=== PATIENT | female | born 1940 | race Caucasian/White ===

== ENCOUNTER 2017-03-30 22:30 | Emergency (ER) | payer OTHER ==
[~2017-03-30] VITALS: Ht 160 cm; Wt 52.6 kg
[~2017-03-30 22:30] MED LIST: ATOR20TA PO; [UNRECOGNIZED DRUG - REMARK]
[2017-03-30] MEDS ORDERED: SODIUM BICARBONATE 4.2 % (NEUT) 5 ML VIAL TP ONE (23:30)
[2017-03-30] MEDS ORDERED: NEOMY/BACITRA/POLYMYXIN B OINT UD PACKET TP ONE (23:30)
[2017-03-30] MEDS ORDERED: LET TOPICAL SOLUTION 8 ML UDC TOP ONE (23:30)
[2017-03-30] MEDS ORDERED: LIDOCAINE HCL 2% 20 ML VIAL TP ONE (23:30)
--- NOTE | 2017-03-31 00:23 | NUR ---
PT IN BED. PT IS A&OX4. VSS. BREATH SOUNDS REGULAR AND UNLABORED. PT GETTING HAND WOUND DRESSED.
[2017-03-31] MEDS ORDERED: SODIUM BICARBONATE 4.2 % (NEUT) 5 ML VIAL ONE (00:50)
[2017-03-31] MEDS ORDERED: NEOMY/BACITRA/POLYMYXIN B OINT UD PACKET TP ONE ×2 (00:50→02:20)
[2017-03-31] MEDS ORDERED: LIDOCAINE HCL 2% 20 ML VIAL ONE (00:50)
[2017-03-31] MEDS ORDERED: LET TOPICAL SOLUTION 8 ML UDC ONE (00:50)
--- NOTE | 2017-03-31 02:00 | NUR ---
MD RANDOLPH AT BEDSIDE PERFORMING LAC REPAIR.
--- NOTE | 2017-03-31 03:30 | NUR ---
Patient discharged to home in stable conditon. Written and verbal after care instructions given. Patient verbalizes understanding of instructions.
[2017-03-31 04:04] VITALS: BP 143/78
== END 2017-03-31 03:30 | disposition home or self-care (01) ==
LOC: ER 22:31
DX: S81.012A Laceration without foreign body, left knee, initial encounter (principal); S61.411A Laceration without foreign body of right hand, initial encounter; J18.9 Pneumonia, unspecified organism; E03.9 Hypothyroidism, unspecified; W01.0XXA Fall on same level from slipping, tripping and stumbling without subsequent striking against object, initial encounter; Y92.89 Other specified places as the place of occurrence of the external cause; Y93.89 Activity, other specified; Y99.8 Other external cause status
CPT/HCPCS: 73130; 73700; A4217; A4663; J3490

== ENCOUNTER 2022-10-15 11:14 | Emergency (ER) | payer OTHER ==
[~2022-10-15] VITALS: Ht 160 cm; Wt 59.0 kg
[2022-10-15] MEDS: IPRATROPIUM BROMIDE 0.5 MG/2.5 ML NEBU NEB ONE (11:45)
[2022-10-15] MEDS: ALBUTEROL SULFATE 2.5 MG/3 ML NEBU NEB ONE (11:45)
[2022-10-15] MEDS ORDERED: IPRATROPIUM BROMIDE 0.5 MG/2.5 ML NEBU ONE (11:47)
[2022-10-15] MEDS ORDERED: ALBUTEROL SULFATE 2.5 MG/3 ML NEBU ONE (11:47)
[2022-10-15] MEDS ORDERED: methylPREDNISolone SOD SUCC 125 MG/2 ML VIAL ONE (11:49)
[2022-10-15 11:50] VITALS: O2SAT 97
[2022-10-15] MEDS: methylPREDNISolone SOD SUCC 125 MG/2 ML VIAL IV ONE (11:54)
[2022-10-15 12:08] LABS: MEAN CORPUSCULAR HGB CONC 34 g/dL (32.3-35.6)
[2022-10-15 12:22] LABS: BASOPHILS # (AUTO) 0.1 K/UL (0.0-0.2); BASOPHILS % (AUTO) 1.5 % (0.0-2.0); DIFFERENTIAL COMMENT 0; EOSINOPHILS % (AUTO) 0.3 % (0.0-7.0); HEMATOCRIT 39.2 % (31.2-41.9); HEMOGLOBIN 13.3 g/dL (10.9-14.3); LYMPHOCYTES # (AUTO) 0.6 K/uL (0.8-4.8); LYMPHOCYTES % (AUTO) 7.1 % (20.5-51.5); MEAN CORPUSCULAR HEMOGLOBIN 32.4 uug (24.7-32.8); MEAN CORPUSCULAR VOLUME 95.4 fL (75.5-95.3); MONOCYTES # (AUTO) 0.9 K/uL (0.1-1.30); MONOCYTES % (AUTO) 10.3 % (0.0-11.0); NEUTROPHILS # (AUTO) 7.2 K/uL (1.8-8.9); NEUTROPHILS % (AUTO) 80.8 % (38.5-71.5); PLATELET COUNT (AUTO) 286 K/uL (179-408); RED BLOOD CELL COUNT(AUTO) 4.11 MIL/uL (3.63-4.92); RED CELL DISTRIBUTION WIDTH 12.3 % (12.3-17.7); WHITE BLOOD COUNT (AUTO) 8.9 K/uL (3.8-11.8)
[2022-10-15 12:26] LABS: CALCIUM 9.1 mg/dL (8.5-10.1); CARBON DIOXIDE 33 mmol/L (21-32); CHLORIDE 102 mmol/L (98-107); CREATININE 0.8 mg/dL (0.6-1.3); GLUCOSE 114 mg/dL (74-106); POTASSIUM 3.6 mmol/L (3.5-5.1); SODIUM SERUM 143 mmol/L (136-145); UREA NITROGEN, BLOOD 12 mg/dL (7-18)
[2022-10-15 12:36] LABS: LACTIC ACID 2.7 mmol/L (0.4-2.0)
[2022-10-15 12:38] LABS: ALANINE AMINOTRANSFERASE 35 U/L (14-59); ALBUMIN 3.5 g/dL (3.4-5.0); ALKALINE PHOSPHATASE 138 U/L (50-136); ASPARTATE AMINOTRANSFERASE 32 U/L (15-37); BILIRUBIN,DIRECT 0.3 mg/dL (0.0-0.2); BILIRUBIN,TOTAL 0.6 mg/dL (0.2-1.0); NT-PRO BNP 207 pg/mL (0-125); TOTAL PROTEIN, SERUM 7.7 g/dL (6.4-8.2)
[2022-10-15] MEDS ORDERED: CEFTRIAXONE /D5W 50ML IVPB **ER PYXIS IV ONE (13:03)
[2022-10-15] MEDS: CEFTRIAXONE 1 G in IV DEXTROSE 5% 50 ML IV ONE (13:04)
[2022-10-15] MEDS: IV NORMAL SALINE 1000 ML BAG IV ONE (13:04)
[2022-10-15] MEDS ORDERED: AZITHROMYCIN 500MG/ D5W 250ML IVPB **ER PYXIS ONLY IV ONE (13:04)
[2022-10-15 13:25] VITALS: O2SAT 99
[2022-10-15] MEDS: AZITHROMYCIN IV 500 MG in IV DEXTROSE 5% 250 ML IV ONE (14:02)
[2022-10-15 17:00] VITALS: O2SAT 95
== END 2022-10-15 17:25 | disposition short-term general hospital (02) ==
LOC: ER 11:19
DX: A41.9 Sepsis, unspecified organism (principal); J18.9 Pneumonia, unspecified organism; J44.9 Chronic obstructive pulmonary disease, unspecified; I25.10 Atherosclerotic heart disease of native coronary artery without angina pectoris; I10 Essential (primary) hypertension; E03.9 Hypothyroidism, unspecified; Z86.2 Personal history of diseases of the blood and blood-forming organs and certain disorders involving the immune mechanism; Z88.2 Allergy status to sulfonamides; Z91.040 Latex allergy status; Z79.899 Other long term (current) drug therapy; Z20.822 Contact with and (suspected) exposure to COVID-19
CPT/HCPCS: 99291; 93970; 96365; 96366; 96367; 96375; 87426; 80076; 80048; 83880; 85025; 85379; 87040 ×2; 84484; 36415; 93005 ×2; 71045; 94644; 83605 ×2; J0456; J0696; J2930; J7040; A4663; J3590

== ENCOUNTER 2024-02-13 14:40 | Emergency (ER) | payer OTHER ==
[~2024-02-13] VITALS: Ht 157.5 cm; Wt 56.7 kg
[2024-02-13 14:47] VITALS: O2SAT 97
[2024-02-13] MEDS: ALBUTEROL SULFATE 2.5 MG/3 ML NEBU NEB ONE ×3 (14:47→20:11)
[2024-02-13] MEDS: IPRATROPIUM BROMIDE 0.5 MG/2.5 ML NEBU NEB ONE (14:47)
[2024-02-13] MEDS ORDERED: IPRATROPIUM BROMIDE 0.5 MG/2.5 ML NEBU ONE (15:02)
[2024-02-13] MEDS ORDERED: ALBUTEROL SULFATE 2.5 MG/3 ML NEBU ONE ×2 (15:02→20:04)
[2024-02-13] MEDS ORDERED: methylPREDNISolone SOD SUCC 125 MG/2 ML VIAL ONE (15:04)
[2024-02-13 15:13] LABS: BASOPHILS # (AUTO) 0.1 K/UL (0.0-0.2); BASOPHILS % (AUTO) 0.7 % (0.0-2.0); HEMATOCRIT 41.5 % (31.2-41.9); HEMOGLOBIN 14.1 g/dL (10.9-14.3); LYMPHOCYTES # (AUTO) 0.8 K/uL (0.8-4.8); LYMPHOCYTES % (AUTO) 10.6 % (20.5-51.5); MEAN CORPUSCULAR HEMOGLOBIN 31.5 uug (24.7-32.8); MEAN CORPUSCULAR HGB CONC 34 g/dL (32.3-35.6); MEAN CORPUSCULAR VOLUME 93.1 fL (75.5-95.3); MONOCYTES # (AUTO) 0.8 K/uL (0.1-1.30); MONOCYTES % (AUTO) 10.5 % (0.0-11.0); NEUTROPHILS # (AUTO) 5.9 K/uL (1.8-8.9); NEUTROPHILS % (AUTO) 78.2 % (38.5-71.5); PLATELET COUNT (AUTO) 218 K/uL (179-408); RED BLOOD CELL COUNT(AUTO) 4.46 MIL/uL (3.63-4.92); RED CELL DISTRIBUTION WIDTH 13.2 % (12.3-17.7); WHITE BLOOD COUNT (AUTO) 7.5 K/uL (3.8-11.8)
[2024-02-13] MEDS: IV NORMAL SALINE 1000 ML BAG IV ONE (15:14)
[2024-02-13] MEDS: methylPREDNISolone SOD SUCC 125 MG/2 ML VIAL IV ONE (15:14)
[2024-02-13] MEDS ORDERED: ATOR20TA27 PO (15:16)
[2024-02-13] MEDS ORDERED: CICL6.1H2 PO (15:16)
[2024-02-13] MEDS ORDERED: LIDO113S2 TOP (15:16)
[2024-02-13 15:17] LABS: DIFFERENTIAL COMMENT 1
[2024-02-13] MEDS ORDERED: BIOT25008 PO (15:18)
[2024-02-13] MEDS ORDERED: CALC-953 PO (15:18)
[2024-02-13] MEDS ORDERED: CYCL1DRO6 TOP (15:18)
[2024-02-13] MEDS ORDERED: FERR325C PO (15:20)
[2024-02-13] MEDS ORDERED: DULO30CA52 PO (15:20)
[2024-02-13] MEDS ORDERED: CITA10TA9 PO (15:20)
[2024-02-13 15:24] LABS: CALCIUM 9.4 mg/dL (8.5-10.1); CARBON DIOXIDE 33 mmol/L (21-32); CHLORIDE 101 mmol/L (98-107); CREATININE 0.5 mg/dL (0.6-1.3); GLUCOSE 111 mg/dL (74-106); POTASSIUM 3.6 mmol/L (3.5-5.1); SODIUM SERUM 142 mmol/L (136-145); UREA NITROGEN, BLOOD 16 mg/dL (7-18)
[2024-02-13] MEDS ORDERED: ALPRAZOLAM 0.5 MG TABLET ONE (15:31)
[2024-02-13] MEDS: ALPRAZOLAM 0.25 MG TABLET PO ONE (15:32)
[2024-02-13 15:38] LABS: ALANINE AMINOTRANSFERASE 26 U/L (14-59); ALKALINE PHOSPHATASE 99 U/L (50-136); ASPARTATE AMINOTRANSFERASE 49 U/L (15-37); BILIRUBIN,DIRECT 0.3 mg/dL (0.0-0.2); BILIRUBIN,TOTAL 0.6 mg/dL (0.2-1.0); NT-PRO BNP 662 pg/mL (0-125); TOTAL PROTEIN, SERUM 7.6 g/dL (6.4-8.2)
[2024-02-13] MEDS: MAGNESIUM SULFATE 2 GM in IV DEXTROSE 5% 100 ML IV ONE (15:44)
[2024-02-13 15:50] VITALS: O2SAT 97; O2SAT 99
[2024-02-13] MEDS ORDERED: GABA-534 PO (15:52)
[2024-02-13] MEDS ORDERED: MULT1TAB11 PO (15:52)
[2024-02-13] MEDS ORDERED: LEVO100C4 PO (15:52)
[2024-02-13] MEDS ORDERED: PRAM0.253 PO (15:54)
[2024-02-13] MEDS ORDERED: OMEP20CA15 PO (15:54)
[2024-02-13] MEDS ORDERED: TIOT4MIS3 PO (15:54)
[2024-02-13] MEDS ORDERED: TACR30OI5 TOP (15:56)
[2024-02-13] MEDS ORDERED: ERGO500014 PO (15:56)
[2024-02-13] MEDS ORDERED: THEO400T PO (15:56)
[2024-02-13] MEDS ORDERED: ACET500C4 PO (15:59)
[2024-02-13] MEDS ORDERED: ALBU8.5H8 PO (15:59)
[2024-02-13] MEDS ORDERED: ALPR0.5T8 PO (15:59)
[2024-02-13] MEDS ORDERED: DOCU100T2 PO (16:01)
[2024-02-13] MEDS ORDERED: FURO20TA4 PO (16:01)
[2024-02-13] MEDS ORDERED: HYDR-4384 PO (16:01)
[2024-02-13] MEDS ORDERED: NALO4SPR NAS (16:04)
[2024-02-13] MEDS ORDERED: IPRA3AMP23 NEB (16:04)
[2024-02-13] MEDS ORDERED: GUAI600T53 PO (16:04)
[2024-02-13] MEDS ORDERED: CEFTRIAXONE /D5W 50ML IVPB **ER PYXIS IV ONE (16:13)
[2024-02-13] MEDS: CEFTRIAXONE 1 G in IV DEXTROSE 5% 50 ML IV ONE (16:27)
[2024-02-13] MEDS ORDERED: POTASSIUM BICARBONATE/CIT AC 25 MEQ TABLET.EFF ONE (17:35)
[2024-02-13] MEDS: POTASSIUM BICARBONATE/CIT AC 25 MEQ TABLET.EFF PO ONE (17:36)
[2024-02-13 20:05] VITALS: O2SAT 96
[2024-02-13 20:20] VITALS: O2SAT 99
[2024-02-13 21:49] VITALS: BP 123/70; TEMP 98.2; O2SAT 96
== END 2024-02-13 21:50 ==
LOC: ER 14:40
DX: J44.1 Chronic obstructive pulmonary disease with (acute) exacerbation (principal); R06.03 Acute respiratory distress; E03.9 Hypothyroidism, unspecified; F32.A Depression, unspecified; F41.9 Anxiety disorder, unspecified; I25.10 Atherosclerotic heart disease of native coronary artery without angina pectoris; I48.91 Unspecified atrial fibrillation; Z20.822 Contact with and (suspected) exposure to COVID-19; Z79.51 Long term (current) use of inhaled steroids; Z79.621 Long term (current) use of calcineurin inhibitor; Z79.890 Hormone replacement therapy; Z79.899 Other long term (current) drug therapy; Z86.73 Personal history of transient ischemic attack (TIA), and cerebral infarction without residual deficits; Z88.2 Allergy status to sulfonamides; Z88.7 Allergy status to serum and vaccine; Z91.040 Latex allergy status
CPT/HCPCS: 99285; 96365; 71045; 96366; 96375; 87426; 87804 ×2; 87081; 80076; 80048; 83880; 83735; 85025; 84484; 36415; 94640; 93005 ×2; 96368; 83605; 87205; 87040; J0696; J3475; J2919; J7040; A4606; A4663; J3590